=== PATIENT | female | born 1950 | race African-American/Black ===

== ENCOUNTER 2017-02-21 11:10 | Day surgery (SDC) | payer BC, OTHER ==
[2017-02-19 12:53] VITALS: BMI 30.2
[2017-02-21] MEDS ORDERED: LIDOCAINE 1%/EPI 1:100000 (20 ML MULTI DOSE VIAL) ONE (15:35)
[2017-02-21] MEDS ORDERED: BUPIVACAINE HCL/PF 0.5% (5MG/ML) 10 ML VIAL ONE (15:35)
[2017-02-21] MEDS ORDERED: MIDAZOLAM HCL 2 MG/2 ML SINGLE DOSE VIAL ONE (15:44)
[2017-02-21] MEDS ORDERED: PROPOFOL 20 ML ONE (15:48)
[2017-02-21] MEDS ORDERED: SUCCINYLCHOLINE CHLORIDE 200 MG/10 ML VIAL ONE (15:51)
[2017-02-21] MEDS ORDERED: EPINEPHrine/PF 1 MG/1 ML (1:1,000) AMPULE ONE (15:52)
[2017-02-21] MEDS ORDERED: ceFAZolin SODIUM 1 GM VIAL IVPB ONE (15:53)
[2017-02-21] MEDS ORDERED: LIDOCAINE HCL/PF 2% SDV 5ML VIAL ONE (15:56)
[2017-02-21] MEDS ORDERED: DEXAMETHASONE SOD PHOSPHATE 4 MG/1 ML VIAL ONE (15:56)
[2017-02-21] MEDS ORDERED: ceFAZolin SODIUM 1 GM VIAL ONE (15:56)
[2017-02-21] MEDS ORDERED: ePHEDrine SULFATE 50 MG/1 ML AMPULE ONE (16:08)
[2017-02-21] MEDS ORDERED: PROMETHAZINE HCL 25 MG/1 ML VIAL IVPUSH PRN (17:01)
[2017-02-21] MEDS ORDERED: ONDANSETRON 4 MG/2 ML VIAL IVPUSH PRN (17:01)
[2017-02-21] MEDS ORDERED: oxyCODONE HCL 5 MG TABLET PO PRN (17:01)
--- NOTE | 2017-02-21 17:02 | OP ---
Operative Note - Note: Operative Date: 02/21/17 Pre-Operative Diagnosis: Right lateral meniscus tear Operation: 1. Surgical arthroscopy right knee. 2. Partial lateral meniscectomy. 3. Chondroplasty lateral femoral condyle. 4. Chondroplasty lateral tibial plateau. 5. 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
--- NOTE | 2017-02-21 17:03 | PN ---
Progress Note (short form) - Note Progress Note: 66F s/p surgical arthroscopy right knee. -Pain control: pain medication (Percocet) ordered to patient's pharmacy -WBAT RLE -Crutches PRN -Remove dressing on Friday, place waterproof band-aids over incision sites, then OK to shower -Incentive spirometry -f/u [facility] [place] office 02/27/2017.
[2017-02-21] MEDS ORDERED: LACTATED RINGERS SOLUTION 1,000 ML IV SCH (17:15)
[2017-02-21 17:42] VITALS: TEMP 97.9
[2017-02-21] MEDS ORDERED: oxyCODONE HCL 5 MG TABLET ONE (19:38)
[2017-02-21 20:46] VITALS: BP 124/70; PULSE 64
[2017-02-21] MEDS ORDERED: PATIENT'S OWN MEDICATION (NON-FORMULARY) (Bupropion Hcl [Bupropion Hcl Sr] 150 MG) PO SCH (22:00)
[2017-02-22] MEDS ORDERED: amLODIPine BESYLATE 5 MG TABLET (FP) PO SCH (10:00)
[2017-02-22] MEDS ORDERED: PANTOPRAZOLE 20 MG TABLET (FP) PO SCH (10:00)
[2017-02-22] MEDS ORDERED: PATIENT'S OWN MEDICATION (NON-FORMULARY) (Amlodipine Besylate/Benazepril [Lotrel 5-40 Mg C PO SCH (10:00)
[2017-02-22] MEDS ORDERED: CHOLECALCIFEROL (VITAMIN D3) 1,000 UNIT TABLET (FP) PO SCH (10:00)
[2017-02-22] MEDS ORDERED: LISINOPRIL 20 MG TABLET (FP) PO SCH (10:00)
--- NOTE | 2017-02-24 02:02 | OP ---
DATE OF OPERATION: 02/21/2017 SURGEON: Khanh Summers MD SOLID PLASTERER: None. PREOPERATIVE DIAGNOSES: 1. Lateral meniscus tear, right knee. 2. Parameniscal cyst, lateral compartment, right knee. POSTOPERATIVE DIAGNOSES: 1. Lateral meniscus tear, right knee. 2. Parameniscal cyst, lateral compartment, right knee. 3. Chondromalacia of lateral femoral condyle. 4. Chondromalacia of lateral tibial plateau. 5. Lateral patellofemoral plica. SURGICAL PROCEDURE: 1. Surgical arthroscopy, right knee. 2. Partial lateral meniscectomy, right knee. 3. Chondroplasty of lateral femoral condyle. 4. Chondroplasty of lateral tibial plateau. 5. Lateral plica excision. ANESTHESIA: General. POSITION: Supine. INCISION: Standard anteromedial and anterolateral arthroscopy portals. ESTIMATED BLOOD LOSS: Minimal. INTRAVENOUS FLUIDS: See Anesthesia Record. SPECIMENS: None. DRAINS: None. COMPLICATIONS: None. URINE OUTPUT: None. BACTERIOLOGY: None. TRANSFUSIONS: None. CLOSURE: A 3-0 nylon. INDICATIONS: Patient is a 66-year-old female who was indicated for a surgical arthroscopy of the right knee with debridement of internal derangements in order to facilitate improved motion and mobilization and to prevent complications associated with prolonged bed rest. Patient was identified in the holding area by her arm band. A long discussion was held with the patient in the presence of her family involving the risks, benefits, and alternatives of the above named procedure. Risks include, but are not limited to pain, bleeding, infection, damage to surrounding structures (including nerves, blood vessels, skin, ligaments, tendons, and bone), wound complications, need for further surgery, blood clots, myocardial infarction, pulmonary embolism, anesthesia complications, compartment syndrome, limb loss, limp, loss of function, and . Benefits as mentioned above. Alternatives include no surgery. All questions were answered. The patient understood and agreed to the procedure. Informed consent was obtained, witnessed, and verified. The patient's correct operative limb, the right lower extremity, was marked. The patient was taken to the operating room after being seen by the anesthesia and nursing staff. PROCEDURE: The patient was brought into the operating room and transferred to the OR table and secured with a safety strap. Consent and the operative site were again verified with the patient, nursing, and anesthesia staff. Anesthesia was then administered without complication including the administration of intravenous antibiotics. Timeout was done, led by me, the attending surgeon. The patient was positioned with bony prominences well padded. Tourniquet was placed proximally on the right thigh and set to 250 mmHg. The operative site was then prepped and draped in the standard sterile fashion. Timeout was again done. Limb was exsanguinated using an Esmarch. The tourniquet was inflated and the case began. All surface anatomy landmarks about the right knee were demarcated using a marking skin pen. A 19-gauge needle was then used to triangulate the lateral joint space and the standard anterolateral portal was made to enter the right knee. The skin was incised using an 11-blade and this sharp dissection was carried through the capsule, into the joint space. Next, the arthroscope was delivered via the lateral compartment into the suprapatellar pouch of the knee. The knee was then insufflated using normal saline solution infused with epinephrine. Excellent visualization of the suprapatellar pouch was achieved and the patellofemoral joint was well visualized. A plica was noted in the lateral patellofemoral joint. Next, the patellofemoral surfaces were observed to be healthy and intact. The arthroscope was then delivered by the medial gutter and no loose bodies were seen into the medial joint space. The menisci were fully intact. There was no concerning chondromalacia observed in the medial compartment. Next, the arthroscope was taken across the middle of the knee where the ACL was visualized to be intact. Next, a 19-gauge needle was introduced through the anticipated standard anteromedial portal and triangulated overlying the ACL. A standard anteromedial portal was then created using an 11-blade again to make the opening skin incision. Trocar was then delivered into the middle of the knee. Next, the arthroscope was delivered into the lateral compartment of the knee along with a probe. Complex horizontal tear occupying the majority of the mid body and posterolateral corner of the meniscus was noted. The superior and inferior leaflets of the tear were both stable; however, degenerative and occupying excess space in the lateral joint space. Grade 3 chondromalacia of the lateral femoral condyle and grade 2 chondromalacia of the lateral tibial plateau were observed. Next, a 4.0 shaver was introduced via the anteromedial portal into the lateral compartment of the knee and the meniscus tear was debrided until the degenerative edge of the meniscus tear was stable. The vast majority of the meniscus was left inside the knee and not resected. The decision was made not to further excise the inferior leaflet of the meniscus given its stability. A gentle chondroplasty was performed so as to debride any unstable flaps of cartilage overlying the lateral femoral condyle as well as lateral tibial plateau. Next, the arthroscope was passed into the lateral gutter of the knee where once again no loose bodies were found. The scope was then brought back into the suprapatellar pouch where the shaver was used to debride and excise the lateral patellofemoral plica. Copious irrigation of the knee was performed. Hemostasis was assured. The wounds were closed primarily using 3-0 nylon suture in a [id number] fashion. A sterile compressive dressing was applied. The tourniquet was let down with a final time of 29 minutes. Sponge and needle counts were correct at the end of the case. I, the attending surgeon, was present and scrubbed throughout the case. Patient was extubated by the anesthesia staff without evidence of complications and was then transferred to the recovery room in stable condition, having tolerated the procedure well. MD BRANDON Stearns/[id number]
--- NOTE | 2017-02-26 15:27 | PATH ---
Surgical Pathology Report Patient Name: ROGELIO RABAGO [facility]. Rec. #: [id number] /Age/Gender: 1950 (Age: 66) / F Account: [id number] Location: [facility] SUR[facility] Taken: 02/21/2017 Received: 02/24/2017 Reported: 02/26/2017 Physicians: Khanh Summers M.D. Specimen(s) Received RIGHT KNEE SHAVINGS Clinical History Right knee meniscal tear Final Diagnosis KNEE SHAVINGS, RIGHT, ARTHROSCOPY WITH LATERAL MENISCECTOMY: FRAGMENTS OF FIBROCARTILAGINOUS TISSUE AND SYNOVIUM. Electronically Signed Verónica Villalpando M.D. Gross Description Received in formalin labeled "right knee shavings," is a 1.5 x 1.5 x 0.2 cm aggregate of rosado-yellow soft tissue fragments. The specimen is entirely submitted in one cassette. 02/24/201702/24/2017
== END 2017-02-21 20:00 | disposition home or self-care (01) ==
LOC: JASU-SURG 11:10
PROVIDERS: ATTEND Orthopaedic Surgery Adult Reconstructive Orthopaedic Surgery
PROC: 0SBD4ZZ Excision of Left Knee Joint, Percutaneous Endoscopic Approach (ICD-10-PCS; 2017-02-21)
PROC: 0SBC4ZZ Excision of Right Knee Joint, Percutaneous Endoscopic Approach (ICD-10-PCS; principal; 2017-02-21 13:00)
DX: S83.281A Other tear of lateral meniscus, current injury, right knee, initial encounter (principal); M23.061 Cystic meniscus, other lateral meniscus, right knee; M94.261 Chondromalacia, right knee; M67.51 Plica syndrome, right knee
CPT/HCPCS: 88304-TC